=== PATIENT | male | born 1975 | race Caucasian/White ===

== ENCOUNTER 2016-09-30 07:33 | Emergency (ER) | payer BC, OTHER ==
[2016-09-30 08:10] LABS: HEMOGLOBIN 15.3 gm/dl (14.0-17.5); RED BLOOD COUNT 5.06 M/UL (4.20-5.50); WHITE BLOOD COUNT 9.4 K/UL (4.5-11.0)
[2016-09-30 08:44] LABS: BUN/CREATININE RATIO 13 (0-10)
== END 2016-09-30 12:20 | disposition home or self-care (01) ==
LOC: ER1 07:33
PROVIDERS: Emergency Medicine
DX: S23.3XXA Sprain of ligaments of thoracic spine, initial encounter (principal); S80.02XA Contusion of left knee, initial encounter; S20.212A Contusion of left front wall of thorax, initial encounter; R10.31 Right lower quadrant pain; F17.200 Nicotine dependence, unspecified, uncomplicated; V47.5XXA Car driver injured in collision with fixed or stationary object in traffic accident, initial encounter; Y93.89 Activity, other specified; Y92.410 Unspecified street and highway as the place of occurrence of the external cause
CPT/HCPCS: 36415; 70450; 71260; 72070; 72125; 73552; 73564; 80053; 84484; 85025; 96360; 96361; 99284; J7050; Q9962